=== PATIENT | female | born 1955 | race Caucasian/White ===

== ENCOUNTER → 2019-07-31 17:56 | Outpatient (CLI) | payer OTHER, SELFPAY | PROVIDERS: Referring Provider Ophthalmology; Visit Provider Ophthalmology | DX: Z22.321 Carrier or suspected carrier of Methicillin susceptible Staphylococcus aureus (principal) | CPT/HCPCS: 87070; 87205 ==

== ENCOUNTER → 2020-03-29 08:11 | Outpatient (CLI) | payer OTHER, SELFPAY ==
--- NOTE | 2020-03-29 08:15 | CT_ITS ---
STUDY: CT LEFT ANKLE WITHOUT CONTRAST REASON FOR EXAM: Female, 65 years old. ACHILLES TENDONITIS RADIATION DOSAGE (If Supplied By Facility): CTDIvol = ( 15.35 ) mGy, DLP = ( 349.92 ) mGycm TECHNIQUE: Thin section transaxial imaging of the ankle was obtained, with sagittal and coronal reconstructed images. Individualized dose optimization techniques were used for this CT. COMPARISON: None. FINDINGS: Old avulsion fracture of the medial malleolus. Normal tibiotalar articulation and talar dome. Normal talus, calcaneus, navicular and cuboid tarsal bones. Normal subtalar, talonavicular and calcaneocuboid articulations. Normal navicular-cuneiform, cuneiform tarsal bones and intercuneiform articulations. Normal tarsometatarsal articulations and visualized metatarsi. Soft tissue swelling in the region of the calcaneus with overlying skin thickening. There is evidence of a spur at the insertion of the Achilles tendon. The Achilles tendon is enlarged and of inhomogeneous density suggestive of inflammation. Plantar spur. CT/Extremity Lower without Contra IMPRESSION: Calcaneal spurs. Thickening and heterogeneous density of the Achilles tendon at its level of insertion with overlying soft tissue swelling and skin thickening. Electronically Signed: Damien Ramirez, at 12:09 EDT , Service support ,
== END ==
PROVIDERS: PCP Family Medicine; Referring Provider Podiatrist Foot & Ankle Surgery; Visit Provider Podiatrist Foot & Ankle Surgery
DX: M76.61 Achilles tendinitis, right leg (principal)
CPT/HCPCS: 73700

== ENCOUNTER → 2020-04-08 13:13 | Outpatient (CLI) | payer OTHER, SELFPAY ==
--- NOTE | 2020-04-08 13:24 | EKG12_ITS ---
Test Reason : PREOP Blood Pressure : / mmHG Vent. Rate : 074 BPM Atrial Rate : 074 BPM P-R Int : 118 ms QRS Dur : 068 ms QT Int : 392 ms P-R-T Axes : 059 012 014 degrees QTc Int : 435 ms Normal sinus rhythm Septal infarct , age undetermined Abnormal ECG Confirmed by TIGRE PITTS, RAJESH ([id number]), brands editor KRYSTIN AMARO ([id number]) on 04/09/2020 10:48:41 AM Referred By: Jose Burdick Confirmed By:RAJESH LANDEROS MD
[2020-04-08 13:31] LABS: Absolute Neutrophil Count 6.2 X10^3/uL (2.0-7.7); Basophil# 0.08 X10^3/uL; Basophil% 0.8 % (0-1); Eosinophil# 0.09 X10^3/uL; Eosinophils% 0.9 % (0-5); Hematocrit 44.6 % (37-47); Hemoglobin 14.8 g/dL (12.0-15.0); Lymphocyte % 28.3 % (19-41); Mean Corp Hgb Conc 33.2 g/dL (32-36); Mean Corpuscular Volume 87.5 fL (81-99); Mean Platelet Vol. 9.8 fl (6.2-12.0); Monocyte# 0.93 X10^3/uL; Monocyte% 9.1 % (0-10); NRBC Flagged by Analyzer 0 % (0-5); Neutrophil # 6.17 X10^3/uL (2.7-7.7); Neutrophil % 60.2 % (47-70); Platelet Count 322 K/mm3 (150-450); RBC Distribution Width CV 13.2 % (11.6-14.6); RBC Distribution Width SD 41.8 fl (35.1-43.9); White Blood Count 10.2 K/mm3 (4.4-11.0)
--- NOTE | 2020-04-08 13:35 | RAD_ITS ---
STUDY: X-RAY CHEST REASON FOR EXAM: Female, 65 years old. PREOP TECHNIQUE: PA and lateral views of the chest. COMPARISON: None. FINDINGS: The lungs are clear and expanded. Scattered calcified granulomas. There is no demonstrated pleural abnormality. Normal size heart. Normal mediastinum and taylor. Normal visualized pulmonary arteries. Normal visualized aortic arch and descending thoracic aorta. There are diffuse degenerative changes of the visualized thoracic spine. Metallic anchors are seen overlying both humeral heads most likely secondary to prior rotator cuff surgery. There is no demonstrated abnormality of the visualized soft tissue structures of the upper abdomen. RAD/Chest PA and Lateral IMPRESSION: No acute abnormality is seen. Electronically Signed: Damien Ramirez, at 15:48 EDT , Service support ,
[2020-04-08 13:43] LABS: International Normalized Ratio 1.1; Prothrombin Time (Protime)PT. 13.3 SECONDS (11.7-14.9)
[2020-04-08 13:44] LABS: Partial Thromboplast Time 25.4 Seconds (24.1-36.2)
[2020-04-08 13:47] LABS: Anion Gap 8 (5-15); BUN 13 mg/dL (7-18); Calcium,Total 9.4 mg/dL (8.5-10.1); Chloride 102 mmol/L (98-107); Creatinine, Serum 0.76 mg/dL (0.55-1.02); EST Glomerular Filtration Rate 81 mL/min (>60); Est Glom Filt Rate - Afr Amer 98 mL/min (>60); Glucose 82 mg/dL (74-106); Potassium 3.6 mmol/L (3.5-5.1); Sodium Level 138 mmol/L (136-145)
== END ==
PROVIDERS: PCP Family Medicine; Referring Provider Podiatrist Foot & Ankle Surgery; Visit Provider Podiatrist Foot & Ankle Surgery
DX: Z01.818 Encounter for other preprocedural examination (principal); Z01.811 Encounter for preprocedural respiratory examination; Z01.810 Encounter for preprocedural cardiovascular examination
CPT/HCPCS: 36415; 71046; 80048; 83036; 85025; 85610; 85730; 93005

== ENCOUNTER → 2020-05-01 09:00 | Outpatient (CLI) | payer OTHER, SELFPAY | PROVIDERS: PCP Family Medicine; Referring Provider Registered Nurse; Visit Provider Registered Nurse | DX: Z11.59 Encounter for screening for other viral diseases (principal) | CPT/HCPCS: 87635; C9803; U0003 ==

== ENCOUNTER → 2020-05-07 14:42 | Outpatient (CLI) | payer OTHER, SELFPAY ==
--- NOTE | 2020-05-07 14:42 | BON_PTH ---
PATIENT: JAZLYN VILLARREAL LOC: [facility] U#:[id number] AGE/SX: 70/F ROOM: RE05/07/[address]: Dr. Jose Burdick DPM : 1955 BED: DIS: SPEC #: [id number] RECD: 05/08/20 15:23 STATUS: JESSICA CORRINA #: [id number] ARLEEN: 05/07/20 14:[address]: Jose Burdick DEPT: SURGICAL PATHOLOGY RECD BY: Ronni Renteria ENTERED: 05/09/20 08:20 SP TYPE: Bone OTHR DR: Dr. Jack Clay, [facility] Tissues: Bone of foot, NOS Procedures: Decalcification bone/plaque Surgery Specimen Level III Comments: @ Specimen number changed from [id number] to [id number] @ on 05/10/20 at 0803 by HEENAOD. HEADER OPERATION: Right Achilles tendon repair, right Achilles tendon reattachment, right resection of calcaneal spur PRE-OP DIAGNOSIS: Shortened Achilles tendon, Achilles tendonitis right ankle, calcaneal spur right foot, pes planus right foot TISSUE SUBMITTED: Calcaneal bone spur MICROSCOPIC DIAGNOSIS Calcaneal bone spur, excision: Osseocartilaginous tissue with degenerative and reparative change. See comment. REY:avelino 05/13/20 COMMENT The findings are consistent with bone spur with degenerative change. MICROSCOPIC DESCRIPTION Slides are reviewed. GROSS DESCRIPTION Received is one container labeled with the patient's name and not further designated. The specimen consists of multiple irregular fragments of lance-white bone that in aggregate measure 4.5 x 4 x 1.2 cm. Assistant Financial Accountant portions are submitted in one cassette after decalcification. / AM:avelino 05/09/20 TC:5 CPT: 62165, 44845
== END ==
PROVIDERS: PCP Family Medicine; Visit Provider Podiatrist Foot & Ankle Surgery
DX: M76.61 Achilles tendinitis, right leg (principal); M77.31 Calcaneal spur, right foot
CPT/HCPCS: 88304; 88311

== ENCOUNTER 2020-11-28 09:00 | Outpatient (RCR) | payer OTHER, SELFPAY ==
--- NOTE | 2020-11-05 15:05 | HP.PTEVAL ---
Patient's Visit Information JAZLYN VILLARREAL is a 65 year old F referred to Physical Therapy by Dr. Jose Burdick DPM with a diagnosis of UNILATERAL OSTEOARTHRITIS PRIMARY LEFT. Date of Evaluation: 11/05/20 Physical Therapist: Ki Valadez, PT, Cert MDT, OCS - Visit Plan Frequency: 2x /Week Duration: 6 Weeks Plan: PATIENT HAS LEFT DJD PLAN FOR THR ,AND PT AT [facility] FOR ACHILLES TENDON SURGERY. PT INTERVENTIONS AQUATIC THERAPY FOR ROM/STRENGTH LEFT HIP ,ANDFLEXABLITY LLE - Subjective This 65 y/o female presents to physical therapy with left hip pain. Patient has had hip pain 4 -5months. Patient seen family DR costa [facility], Seen DR Barbosa DID X-RAYS showed DJD and will need THR . In the mean ,time May 07 achilles tendon surgery resection DR Trevor Burdick at [facility] . Patient has been getting therapy for achllies tondon. Aggraveting factors walking ,standing in/out of care,unable to squat or kneel. Patient ascend/desend stairs one step at time. Alleviating factors heat. Symptoms worse at time.Patient has difficulty sleeping. Denies parathesia/tingling. Patient pain affects sleeping. Patient left hip pain affects ADLS' and housework tasks. Patient symptoms affects QOL. SOCIAL: . VOACTION: retired - Pain Left Hip Pain Intensity (Out of 10): 9 Pain Intensity Range: 10 - Objective POSTURE: mild foward posture. GAIT: reciprocal pattern antalgic gait. NEURO: denies parathesia/tingling. AROM KNEE : 5-105 supine ,hip flexion 70 degrees,abduction 20 degrees,IR 0 degrees,ER 20 degrees. MMT: quads/hams 4-/5,hip flexion 3+/5,hip abduction 3+/5. STAIRS: one step at a time with rail - Special Tests L Hip Scour: Positive L Hip Trendelenberg - Glut Medius: Positive - Goals Goal 1:: I with Aquatic Therapy program Goal Time Frame: 4-6 Weeks Goal 2:: Patient to decrease hip pain by 40% or > to improve function and gait Goal Time Frame: 4-6 Weeks Goal 3:: Patient to increase AROM left hip by 5-10 degrees or> to impro ve function Goal Time Frame: 4-6 Weeks Goal 4:: Patient to increase strength hip 4-/5 and quads/hams 4/5 to improve function wth gait Goal Time Frame: 4-6 Weeks Goal 5:: Patient to improve LFES score by 5 points or> to improve function Goal Time Frame: 4-6 Weeks - Rehabilitation Potential Physical Therapy Diagnosis: Patient has left hip DJD with pain ,poor ROM ,strength hip impairs walking ,standing ADL'S and housework tasks thus benifit from skilled PT Rehabilitation Potential: Good - Anticipated Interventions Patient/Client Instruction: Educate patient on: Condition, Plan of Care For the Purpose of:: To decrease pain, To increase ROM, To improve muscle performance and motor function, To increase tolerance to activity/condition/position, To improve performance and independence with ADL's, To improve ability of physical actions for home/community/work/leisure, To improve gait and locomotor functions, To improve health of tissue, To decrease soft tissue restriction, To increase flexibility/ROM Therapeutic Exercise to Include: Strength training, Balance training, Flexibilty training, In an aquatic setting, Passive ROM, Active ROM Comment: HIP/KNEE For the Purpose of:: To decrease pain, To increase ROM, To improve muscle performance and motor function, To improve ability to perform ADL's, To increase tolerance to activity/condition/position, To improve performance and independence with ADL's, To improve ability of physical actions for home/community/work/leisure, To improve health of tissue, To decrease soft tissue restriction, To increase flexibility/ROM Thank you for the opportunity to evaluate your patient. For Medicare and Medicare HMO plans, please review the plan of care and approve it. It will need to be FAXED BACK to us at [phone] for Medicare purposes. For Medicare only, by signing this I certify the plan of care. Please let me know if there are questions or concerns regarding this plan of care. Physician Signature: Date:
--- NOTE | 2020-11-05 15:15 | HP.PTEVAL_ITS ---
Patient's Visit Information JAZLYN VILLARREAL is a 65 year old F referred to Physical Therapy by Dr. Jose Burdick DPM with a diagnosis of PRIMARY UNILATERAL OSTEOARTHRITIS HIP. Date of Evaluation: 11/05/20 Physical Therapist: Ki Valadez, PT, Cert MDT, OCS - Visit Plan Frequency: 2x /Week Duration: 6 Weeks Plan: PATIENT HAS LEFT DJD PLAN FOR THR ,AND PT AT [facility] FOR ACHILLES TENDON SURGERY. PT INTERVENTIONS AQUATIC THERAPY FOR ROM/STRENGTH LEFT HIP ,ANDFLEXABLITY LLE - Subjective This 65 y/o female presents to physical therapy with left hip pain. Patient has had hip pain 4 -5months. Patient seen family DR costa [facility], Seen DR Barbosa DID X-RAYS showed DJD and will need THR . In the mean ,time May 07 achilles tendon surgery resection DR Trevor Burdick at [facility] . Patient has been getting therapy for achllies tondon. Aggraveting factors walking ,standing in/out of care,unable to squat or kneel. Patient ascend/desend stairs one step at time. Alleviating factors heat. Symptoms worse at time.Patient has difficulty sleeping. Denies parathesia/tingling. Patient pain affects sleeping. Patient left hip pain affects ADLS' and housework tasks. Patient symptoms affects QOL. SOCIAL: . VOACTION: retired - Pain Left Hip Pain Intensity (Out of 10): 9 Pain Intensity Range: 10 - Objective POSTURE: mild foward posture. GAIT: reciprocal pattern antalgic gait. NEURO: denies parathesia/tingling. AROM KNEE : 5-105 supine ,hip flexion 70 degrees,abduction 20 degrees,IR 0 degrees,ER 20 degrees. MMT: quads/hams 4- /5,hip flexion 3+/5,hip abduction 3+/5. STAIRS: one step at a time with rail - Special Tests L Hip Scour: Positive L Hip Trendelenberg - Glut Medius: Positive - Goals Goal 1:: I with Aquatic Therapy program Goal Time Frame: 4-6 Weeks Goal 2:: Patient to decrease hip pain by 40% or > to improve function and gait Goal Time Frame: 4-6 Weeks Goal 3:: Patient to increase AROM left hip by 5-10 degrees or> to impro ve function Goal Time Frame: 4-6 Weeks Goal 4:: Patient to increase strength hip 4-/5 and quads/hams 4/5 to improve function wth gait Goal Time Frame: 4-6 Weeks Goal 5:: Patient to improve LFES score by 5 points or> to improve function Goal Time Frame: 4-6 Weeks - Rehabilitation Potential Physical Therapy Diagnosis: Patient has left hip DJD with pain ,poor ROM ,strength hip impairs walking ,standing ADL'S and housework tasks thus benifit from skilled PT Rehabilitation Potential: Good - Anticipated Interventions Patient/Client Instruction: Educate patient on: Condition, Plan of Care For the Purpose of:: To decrease pain, To increase ROM, To improve muscle performance and motor function, To increase tolerance to activity/condition/position, To improve performance and independence with ADL's, To improve ability of physical actions for home/community/work/leisure, To improve gait and locomotor functions, To improve health of tissue, To decrease soft tissue restriction, To increase flexibility/ROM Therapeutic Exercise to Include: Strength training, Balance training, Flexibilty training, In an aquatic setting, Passive ROM, Active ROM Comment: HIP/KNEE For the Purpose of:: To decrease pain, To increase ROM, To improve muscle performance and motor function, To improve ability to perform ADL's, To increase tolerance to activity/condition/position, To improve performance and independence with ADL's, To improve ability of physical actions for home/community/work/leisure, To improve health of tissue, To decrease soft tissue restriction, To increase flexibility/ROM Thank you for the opportunity to evaluate your patient. For Medicare and Medicare HMO plans, please review the plan of care and approve it. It will need to be FAXED BACK to us at [phone] for Medicare purposes. For Medicare only, by signing this I certify the plan of care. Please let me know if there are questions or concerns regarding this plan of care. Physician Signature: Date:
--- NOTE | 2020-11-06 09:22 | HP.PTEVAL_ITS ---
Patient's Visit Information JAZLYN VILLARREAL is a 65 year old F referred to Physical Therapy by Dr. Santosh Barbosa MD with a diagnosis of PRIMARY UNILATERAL OSTEOARTHRITIS LEFT HIP. Date of Evaluation: 11/05/20 Physical Therapist: Ki Valadez, PT, Cert MDT, OCS - Visit Plan Frequency: 2x /Week Duration: 6 Weeks Plan: PATIENT HAS LEFT DJD PLAN FOR THR ,AND PT AT [facility] FOR ACHILLES TENDON SURGERY. PT INTERVENTIONS AQUATIC THERAPY FOR ROM/STRENGTH LEFT HIP ,ANDFLEXABLITY LLE - Subjective This 65 y/o female presents to physical therapy with left hip pain. Patient has had hip pain 4 -5months. Patient seen family DR costa [facility], Seen DR Barbosa DID X-RAYS showed DJD and will need THR . In the mean ,time May 07 achilles tendon surgery resection DR Trevor Burdick at [facility] . Patient has been getting therapy for achllies tondon. Aggraveting factors walking ,standing in/out of care,unable to squat or kneel. Patient ascend/desend stairs one step at time. Alleviating factors heat. Symptoms worse at time.Patient has difficulty sleeping. Denies parathesia/tingling. Patient pain affects sleeping. Patient left hip pain affects ADLS' and housework tasks. Patient symptoms affects QOL. SOCIAL: . VOACTION: retired - Pain Left Hip Pain Intensity (Out of 10): 9 Pain Intensity Range: 10 - Objective POSTURE: mild foward posture. GAIT: reciprocal pattern antalgic gait. NEURO: denies parathesia/tingling. AROM KNEE : 5-105 supine ,hip flexion 70 degrees,abduction 20 degrees,IR 0 degrees,ER 20 degrees. MMT: quads/hams 4- /5,hip flexion 3+/5,hip abduction 3+/5. STAIRS: one step at a time with rail - Special Tests L Hip Scour: Positive L Hip Trendelenberg - Glut Medius: Positive - Goals Goal 1:: I with Aquatic Therapy program Goal Time Frame: 4-6 Weeks Goal 2:: Patient to decrease hip pain by 40% or > to improve function and gait Goal Time Frame: 4-6 Weeks Goal 3:: Patient to increase AROM left hip by 5-10 degrees or> to impro ve function Goal Time Frame: 4-6 Weeks Goal 4:: Patient to increase strength hip 4-/5 and quads/hams 4/5 to improve function wth gait Goal Time Frame: 4-6 Weeks Goal 5:: Patient to improve LFES score by 5 points or> to improve function Goal Time Frame: 4-6 Weeks - Rehabilitation Potential Physical Therapy Diagnosis: Patient has left hip DJD with pain ,poor ROM ,strength hip impairs walking ,standing ADL'S and housework tasks thus benifit from skilled PT Rehabilitation Potential: Good - Anticipated Interventions Patient/Client Instruction: Educate patient on: Condition, Plan of Care For the Purpose of:: To decrease pain, To increase ROM, To improve muscle performance and motor function, To increase tolerance to activity/condition/position, To improve performance and independence with ADL's, To improve ability of physical actions for home/community/work/leisure, To improve gait and locomotor functions, To improve health of tissue, To decrease soft tissue restriction, To increase flexibility/ROM Therapeutic Exercise to Include: Strength training, Balance training, Flexibilty training, In an aquatic setting, Passive ROM, Active ROM Comment: HIP/KNEE For the Purpose of:: To decrease pain, To increase ROM, To improve muscle performance and motor function, To improve ability to perform ADL's, To increase tolerance to activity/condition/position, To improve performance and independence with ADL's, To improve ability of physical actions for home/community/work/leisure, To improve health of tissue, To decrease soft tissue restriction, To increase flexibility/ROM Thank you for the opportunity to evaluate your patient. For Medicare and Medicare HMO plans, please review the plan of care and approve it. It will need to be FAXED BACK to us at [phone] for Medicare purposes. For Medicare only, by signing this I certify the plan of care. Please let me know if there are questions or concerns regarding this plan of care. Physician Signature: Date:
--- NOTE | 2020-11-28 09:18 | HP.PTDCSUM ---
It has been my pleasure to treat JAZLYN VILLARREAL referred by Dr. Santosh Barbosa MD, with the diagnosis of PRIMARY UNILATERAL OSTEOARTHRITIS LEFT HIP for a total of 9 visit(s). Discharge Date: 11/28/20 Please see the following information for a summary of their discharge status. Subjective: Plan to left THR on february 19 . Also,plan to have hysterectomy tommorrow thus has to be done with PT. Left Hip Pain Intensity (Out of 10): 5 LLE Pain Intensity (Out of 10): 0 RLE Pain Intensity (Out of 10): 0 % Improvement: 50 Objective/Function: D/t elevated pains today, beginning in NWBing for hopeful pain relief. Difficulty with maintaining neutral pelvis against upward pull of buoyancy demo'ing ant. pelvic tilt. Able to correct with VCs, however, difficulty maintaining. REports of reduced pain to 5/10 after DLP tasks. Demo'ing improved tolerance to greater WBing through LLE for x5 reps of step ups before becoming more painful. Able to tolerate an additional x25 reps at ~25-35% WBing. Goal 1:: I with Aquatic Therapy program Goal Progress: Goal Met Goal 2:: Patient to decrease hip pain by 40% or > to improve function and gait Goal Progress: Goal Met Goal 3:: Patient to increase AROM left hip by 5-10 degrees or> to impro ve function Goal Progress: Progressing Goal 4:: Patient to increase strength hip 4-/5 and quads/hams 4/5 to improve function wth gait Goal Progress: Progressing Goal 5:: Patient to improve LFES score by 5 points or> to improve function Goal Progress: Goal Met Plan: *f/u with supervising PT tomorrow. Has Filled out % improved and LEFS on Saturday 11/25. Having hysterectomy Wednesday. Scheduled for L RAMON 02/19/21. PATIENT HAS LEFT DJD PLAN FOR THR ,AND PT AT [facility] FOR ACHILLES TENDON SURGERY. PT INTERVENTIONS AQUATIC THERAPY FOR ROM/STRENGTH LEFT HIP ,ANDFLEXABLITY LLE Discharge Comments: PLAN FOR THR JANUARY If there are questions or concerns regarding this patient's physical therapy, please feel free to call me at [phone]. Thank you for the referral of this patient. Sincerely, Ki aVladez, PT, Cert MDT, OCS
== END 2020-11-28 19:00 | disposition home or self-care (01) ==
LOC: PT 09:00
PROVIDERS: PCP Family Medicine; Referring Provider Specialist; Visit Provider Specialist
DX: M16.12 Unilateral primary osteoarthritis, left hip (principal); M67.01 Short Achilles tendon (acquired), right ankle
CPT/HCPCS: 97113; 97162; 97530

== ENCOUNTER 2021-02-19 07:07 | Observation (INO) | payer OTHER, SELFPAY ==
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
[2021-02-05 09:09] LABS: Absolute Lymphocyte Count 1.53 X10^3/uL (0.83-4.51); Absolute Neutrophil Count 4.7 X10^3/uL (2.0-7.7); Basophil# 0.06 X10^3/uL; Basophil% 0.8 % (0-1); Eosinophil# 0.09 X10^3/uL; Eosinophils% 1.3 % (0-5); Hematocrit 43.7 % (37-47); Hemoglobin 14.1 g/dL (12.0-15.0); Lymphocyte # 1.53 X10^3/ul (0.83-4.51); Lymphocyte % 21.7 % (19-41); Mean Corp Hgb Conc 32.3 g/dL (32-36); Mean Corpuscular Hgb 28.2 pg (27.0-32.0); Mean Corpuscular Volume 87.4 fL (81-99); Mean Platelet Vol. 9.8 fl (6.2-12.0); Monocyte# 0.62 X10^3/uL; Monocyte% 8.8 % (0-10); NRBC Flagged by Analyzer 0 % (0-5); Neutrophil % 66.6 % (47-70); Platelet Count 323 K/mm3 (150-450); RBC Distribution Width CV 13.2 % (11.6-14.6); RBC Distribution Width SD 41.4 fl (35.1-43.9); White Blood Count 7.1 K/mm3 (4.4-11.0)
[2021-02-05 09:46] LABS: Anion Gap 8 (5-15); BUN 13 mg/dL (7-18); Calcium,Total 9.6 mg/dL (8.5-10.1); Chloride 105 mmol/L (98-107); Creatinine, Serum 0.81 mg/dL (0.55-1.02); EST Glomerular Filtration Rate 75 mL/min (>60); Est Glom Filt Rate - Afr Amer 91 mL/min (>60); Glucose 116 mg/dL (74-106); Potassium 3.4 mmol/L (3.5-5.1); Sodium Level 142 mmol/L (136-145)
--- NOTE | 2021-02-05 09:48 | EKG12_ITS ---
Test Reason : PREOP Blood Pressure : / mmHG Vent. Rate : 068 BPM Atrial Rate : 068 BPM P-R Int : 126 ms QRS Dur : 068 ms QT Int : 388 ms P-R-T Axes : 044 003 015 degrees QTc Int : 412 ms Sinus rhythm with Premature atrial complexes Low voltage QRS Septal infarct (cited on or before 08-APR-2020) Abnormal ECG Confirmed by TIGRE PITTS, RAJESH ([id number]), purchase request editor ADRIANNA TOSCANO ([id number]) on 02/07/2021 8:07:45 AM Referred By: Santosh Barbosa Confirmed By:RAJESH LANDEROS MD
[2021-02-05 09:55] LABS: Magnesium 1.9 mg/dL (1.6-2.6)
[2021-02-19] VITALS (12 sets, daily range): BP systolic 85–169; BP diastolic 55–101; PULSE 53–77; RESP 16–18; TEMP 35.6–37.1; O2SAT 6–100; BMI 39.2; BMI 41.6
--- NOTE | 2021-02-19 07:08 | RAD_ITS ---
STUDY: X-RAY - PELVIS AND LEFT HIP REASON FOR EXAM: Postop left hip arthroplasty. TECHNIQUE: 2 views of the pelvis and hip. COMPARISON: None. FINDINGS: There is mild postoperative gas in the soft tissues. Normal bilateral superior and inferior pubic rami. Normal pubic symphysis. Normal bilateral ischial tuberosities. There is a left hip arthroplasty without evidence of complication. RAD/Hip Min 2 Views (Portable) IMPRESSION: Uncomplicated left hip arthroplasty. Electronically Signed: Pete Carl MD at 12:41 EDT Tel , Service support ,
--- NOTE | 2021-02-19 07:10 | OP.PCM_ITS ---
Report of Operation Date of Procedure: 02/19/21 Pre-Operative Diagnosis: Left hip primary osteoarthritis Post-Operative Diagnosis: Left hip primary osteoarthritis Surgery/Procedure Performed:: Left minimally invasive direct anterior hip replacement Description of Surgical Findings:: Stable hip with equal leg lengths Surgeon: Santosh Barbosa base engineer: Lazarus Patel Type of Anesthesia: Spinal Special Medications: 2 g Ancef, 1 g TXA at incision, 1 g TXA closure, 10 mg Decadron, joint cocktail (5 mg Duramorph, 30 mL of 0.5% Ropivicaine, 1000 units of epinephrine, 30 mg of Toradol) Specimen's removed: Bony cuts Estimated Blood Loss (mL): 250 Fluids Replaced: 1200 mL crystalloid Description of Procedure: Components used: 1. Accolade 2 Ej femoral stem size 2 127? 2. Ej trident 2 acetabular shell size 52 mm 3. Ej X3 polyethylene E 4. Ej Biolox delta 36 mm, 0 mm femoral head Brief history operative indications: 66yo female who failed conservative measures for their hip osteoarthritis. X- rays were consistent with osteoarthritis including joint space narrowing, osteophyte formation and subchondral cysts. Total hip replacement was discussed with the patient with risks and benefits including but not limited to blood loss, DVTs, PEs, neurovascular damage, dislocation, general risks of anesthesia including loss of life. Patient demonstrated an understanding medical clearance is obtained the patient was consented for surgery. Procedure: On the date of procedure the patient's L hip was marked in the preoperative area. Patient was then taken back to the operating room where anesthesia assumed control of the C-spine and airway and administered anesthetic. Patient was transferred to the operating table and placed in the supine position. The hips were placed at the break of the bed and a sacral bump was placed. L The lower extremity was then prepped out in a sterile fashion using chlorhexidine while the surgeon scrubbed. The PA was vital in the positioning of the patient. Upon reentering the room the left lower extremity was draped in the standard orthopedic fashion and the incision was marked. A timeout was called and everyone agreed upon the side, the site, the procedure be performed, antibody given, and patient's identity. At this time incision was made through skin, subcutaneous tissue, and fat down to fascia. The fascia was then incised and the TFL was retracted laterally. A retractor was placed on the lateral border of the femoral neck. Attention was directed to the inferior portion of the approach and all crossing vessels were identified and appropriately coagulated. A retractor was then placed on the medial portion of the femoral neck. The anterior capsule was then cleared of all soft tissue and then H shaped capsulotomy was made. The retractors were then placed inside the capsule. The femoral neck was identified and a cleanup cut was made. At this time a power corkscrew was used to remove the femoral head. Attention was then turned toward the acetabulum where the soft tissues were appropriately retracted and the acetabulum was sequentially reamed to 52 mm. A 52 mm cup was then selected and impacted into place. Acetabular liner was impacted into place and locking mechanism was verified. The position of the acetabular cup was then verified under live fluoroscopy. Attention was then turned to the femur. Soft tissue releases on the medial and lateral femoral neck were appropriately done, the leg was externally rotated and lateralized. A Tim retractor was placed medially and proximally to the greater trochanter this allowed appropriate visualization and exposure of the femoral canal. Rongeour was then used to remove excess lateral bone. A canal finder and entry broach were used to open the proximal canal. Once we verified we were down the femoral canal we subsequently broached up to a size 2 femur. The appropriate neck was placed in the previously selected head was trialed with a 0 mm neck. Traction was pulled and the hip was reduced with internal rotation. Once it was appropriately reduced and stability was checked. There was minimal shuck, equal leg lengths and appropriate stability with hyperextension and external rotation as well as with 90? flexion and internal rotation. Fluoroscopy was then also used to verify the position of the components and leg lengths using the contralateral side for comparison. The trial components were then dislocated the proximal femur was again exposed and the components were removed from the wound. The final components were verified and opened. The wound was copiously irrigated out with normal saline. The acetabulum was checked for any residual debris. The final components were placed and impacted. Traction and internal rotation were again used to reduce the hip. After adequate reduction the hip remained stable with appropriate leg lengths. The final components were once again checked with live fluoroscopy and were found to be satisfactory. The wound was then copiously irrigated with normal saline once more, and hemostasis was obtained. Closure was then done using #1 Vicryl runner to close the fascia. A 2-0 vicryl interuppted sutures were used to close the subcutaneous skin. A 3-0 Monocryl and Steri-Strips were used for final skin closure. A Silverlon dressing was placed. Patient was awakened by anesthesia and transferred to the [facility]. Patient was then transferred to the PACU for recovery. Postoperative plan: Patient will get 24 hours postop antibiotics. Patient will get in-house physical therapy and will be weight-bear as tolerated. Patient will follow up in office in 2 weeks for a wound check and x-rays. Aspirin 81 mg twice daily. Complications No intraoperative complications Admit VTE Documentation VTE Present on Admission: No VTE Mechan Device Prophylaxis: SCD's and Thigh High NORA Hose VTE Pharm Prophylaxis ordered?: Yes
[2021-02-19] MEDS: Acetaminophen 500 MG Tablet 1000 MG PO ×3 (07:14→22:37)
[2021-02-19] MEDS: Lactated Ringers 1,000 ML 999 ML IV ×2 (07:14→09:30)
[2021-02-19] MEDS: Gabapentin 600 MG Tablet PO (07:14)
[2021-02-19] MEDS: Scopolamine 1mg/72hr Patch 1 PATCH TD (07:15)
[2021-02-19] MEDS: Lactated Ringers 1,000 ML 75 ML IV (07:16)
--- NOTE | 2021-02-19 09:00 | FEM._PTH ---
PATIENT: JAZLYN VILLARREAL LOC: MS3 U#:[id number] AGE/SX: 66/F ROOM: GA310 RE02/19/[address]: Dr. Santosh Barbosa MD : 1955 BED: 1 DIS: 02/20/2021 SPEC #: [id number] RECD: 02/19/21 11:19 STATUS: JESSICA RERosio #: [id number] ARLEEN: 02/19/21 09:[address]: Santosh Barbosa DEPT: SURGICAL PATHOLOGY RECD BY: Judi Sexton ENTERED: 02/19/21 12:26 SP TYPE: FEM HEAD OTHR DR: DO Edmar Rosas PA-C Tissues: Hip, NOS Procedures: Decalcification bone/plaque Surgery Specimen Level IV HEADER OPERATION: ERAS, total hip anterior approach PRE-OP DIAGNOSIS: Severe left hip osteoarthritis TISSUE SUBMITTED: Tissue and bone left hip MICROSCOPIC DIAGNOSIS Bone and tissue of left hip, total hip resection: Severe degenerative joint disease. AM:avelino 02/24/2021 MICROSCOPIC DESCRIPTION Slides are reviewed. GROSS DESCRIPTION Received is one container labeled with the patient's name and designated tissue and bone left hip. The specimen consists of a femoral head. The femoral head measures 3.5 x 4 x 3.5 cm. Also present in the container is a detached piece of bone consistent with portion of neck measuring 4 x 4 x 1 cm. The articular surface displays prominent osteophyte formation, eburnation and bone erosion. Also present in the specimen container are multiple irregular fragments of bone reamings and pink-yellow soft tissue measuring in aggregate 8 x 9 x 3 cm. The soft tissue predominantly consists of bone reamings. Material Requirements Planning Manager sections are submitted in two cassettes after decalcification as follows: 1 - soft tissue and bone reamings, 2 ? femoral head. / SJ:avelino 02/19/21 TC:5 CPT: 79920, 46680
[2021-02-19] MEDS: Cefazolin 2 GM in 0.9% Normal Saline 100 ML IV (09:02)
[2021-02-19] MEDS: dexAMETHasone 10 MG/ML Vial IV (09:23)
--- NOTE | 2021-02-19 10:02 | RAD_ITS ---
STUDY: X-RAY - PELVIS AND LEFT HIP REASON FOR EXAM: Intraoperative fluoroscopy for left hip arthroplasty. TECHNIQUE: 3 intraoperative images of the pelvis and hip. COMPARISON: None. FINDINGS: There is a left hip arthroplasty without evidence of complication. 16.6 seconds of fluoroscopy time was used. Electronically Signed: Pete Carl MD at 14:46 EDT Tel , Service support , RAD/Hip 1 view with Pelvis
[2021-02-19 10:20] LABS: Bedside Glucose 89 mg/dL (70-110)
[2021-02-19] MEDS: Lactated Ringers 1,000 ML 125 ML IV (10:30)
--- NOTE | 2021-02-19 13:33 | NURSING ---
spoke with Yenifer CASTILLO RE: MAR
--- NOTE | 2021-02-19 14:26 | PCM.PN.HOSP ---
Documented by User: Shiloh Roman NP, CAMP[employer] CLEANING ATTENDANT-C 02/19/21 14:29 Subjective Subjective Patient seen and examined. Underwent left hip replacement. Resting comfortably in bed. Denies current symptoms or complaints. Objective Data Objective Data Vital Signs: Vital Signs Temp Pulse Resp BP Pulse Ox 98.0 F 65 18 153/82 H 6 02/19/21 12:45 02/19/21 12:45 02/19/21 12:45 02/19/21 12:45 02/19/21 12:45 Oxygen Flow Rate (L/min) 6 Oxygen Delivery Method Simple Mask Weight: 242 lb 8.136 oz Body Mass Index (BMI) 41.6 Intake & Output: Intake and Output for Last 24 Hours 02/17/21 02/18/21 02/19/21 23:59 23:59 23:59 Intake Total 3326 / 3326 Balance 3326 / 3326 Lab / Micro Data Result Diagrams: 02/05/21 08:42 02/05/21 08:42 Labs: Laboratory Results - last 24 hr 02/19/21 07:01 POC Glucose 89 Micro: Microbiology 02/18/21 08:45 Interface Orders SARS-CoV-2 Antigen (Rapid) - Final 02/05/21 08:42 Swab (Method) Nasal Screen MRSA/MSSA - Final Radiography Diagnostic Testing: Radiology Impression Hip X-Ray 02/19/21 07:08 IMPRESSION: Uncomplicated left hip arthroplasty. Electronically Signed: Pete Carl MD at 12:41 EDT Tel , Service support , Physical Exam Const alert, oriented x3 and no apparent distress Orientation / Consciousness: awake, oriented to person, oriented to place and oriented to time HEENT normocephalic and moist oral mucous membranes Eyes PERRL, EOMs intact bilaterally and conjunctivae normal Neck no lymphadenopathy Resp normal respiratory effort and clear to auscultation bilaterally Cardio regular rate, regular rhythm and no murmurs Peripheral Pulses: pulses 2+ throughout GI normal to inspection, nondistended, normoactive bowel sounds, non-tender and non-distended Extremity normal to inspection Skin no rashes or lesions noted Skin Narrative: Postop dressing intact. Lesions: no lesions Rashes: no rashes Trauma: no lacerations or abrasions Neuro CN's II-XII intact bilaterally, no focal motor deficits, no sensory deficits noted and deep tendon reflexes 2+ bilaterally Psych mental status grossly normal and affect normal Assessment & Plan Assessment/Plan (1) Hypertension: PLAN: 1. Left hip osteoarthritis status post left hip replacement- management per ortho. PT/OT. PRN pain regimen. 2. Hypertension-stable, continue losartan/HCTZ. 3. Depression-on escitalopram. 4. GERD-continue PPI. 5. SOFI-continue PAP regimen. 6. History of breast cancer DVT prophylaxis- per ortho This patient was seen by YARELY Chavira under the supervision of Dr. Angel. Documented by User: Dr. Davide Angel MD 02/19/21 16:06 Objective Data Lab / Micro Data Result Diagrams: 02/05/21 08:42 02/05/21 08:42 Charges/Coding Addendum Addendum: Dr. Angel: I personally reviewed the chart and examined the patient, and agree with the above findings. 66-year-old female presents for an elective total hip secondary to arthritis on the left. Her primary medical diagnosis is hypertension, GERD, anxiety and depression. All of her medications can be continued we will continue to monitor. Would recommend monitoring her renal function secondary to being postop and having an ARB and diuretic on board. Visit Charges Inpatient E&M: 43511 Subs Hosp L3
[2021-02-19] MEDS: Morphine 2 MG/ML Syringe IV (15:05)
[2021-02-19] MEDS: Ketorolac 15 MG/ML Vial IV (15:05)
[2021-02-19] MEDS: Aspirin 81 MG TAB.CHEW PO (15:06)
--- NOTE | 2021-02-19 15:10 | CASEMGMT ---
RN CM F[employer]ER[employer] DOWEL DRAWING OPERATOR CM to room to meet with patient for initial transition planning/care coordination assessment. JONATHAN SHELTON introduced self and role at [facility]. Pt voices understanding and consents to assessment at this time. Pt resting in bed in no distress at this time. Pt is A/O at this time and answers all questions appropriately. Care providers, pharmacy, and demographics verified/updated at this time. PCP: Dr Jack Clay in [place] Specialists: Dr Barbosa-ortho, Dr Trevor Burdick- podiatry, Dr Josue Ford--oncology in [place] Preferred Pharmacy: [facility] Retail Insurance: CINDY [employer]lain [facility] Prescription Benefit: Yes Living Will/HPOA: Has both LW and Healthcare POA, who is her , Kendrick. Pt aware copies are not on file @ [facility]. She states she will have her bring them in if he is able to find them. LNOK: , Kendrick Living Arrangements: Lives w/her in mobile home w/4 steps to enter. Was independent w/ADL's and IADL's prior to surgery. Pt managed most home tasks. able to assist pt @ d/c. Transportation: Pt states drives self and states no transportation concerns at this time. also drives DME: States has the following DME: shower chair, cane, walker Pt states no need for further DME at this time. HHC/SNF: No history of either. Denies need for HHC. Pt has appt scheduled for OP PT @ [facility] on 02/24 @ 0900 Pt wishes to return home and states has no concerns with going home at time of discharge. CM to follow for any discharge planning/needs. Pt voices no concerns/needs at this time. Advised pt to ask for CM if any questions/concerns/needs arise. Voices understanding. PLAN: Home w/spousal support, discharge plans in place, and OP therapy @ [facility]. Thien JOSE RN, CM
[2021-02-19] MEDS: oxyCODONE 5 MG Tablet PO ×2 (16:13→20:40)
[2021-02-19] MEDS: Cefazolin 1 GM/50 ML BAG IV (16:13)
[2021-02-19] MEDS: hydroCHLOROthiazide 12.5mg 12.5 MG PO (16:15)
[2021-02-19] MEDS: Losartan Potassium 25 MG Tablet PO (18:45)
[2021-02-19] MEDS: Senna/Docusate Sodium 1 Tablet 2 TABLET PO (22:37)
[2021-02-19] MEDS: Montelukast 10 MG Tablet PO (22:37)
[2021-02-19] MEDS: Escitalopram Oxalate 10 MG Tablet PO (22:37)
[2021-02-20 00:30] VITALS: BMI 41.6
[2021-02-20] MEDS: oxyCODONE 5 MG Tablet PO ×2 (01:07→08:40)
[2021-02-20] MEDS: Cefazolin 1 GM/50 ML BAG IV (01:08)
[2021-02-20 04:30] VITALS: BP 148/74; PULSE 65; RESP 18; TEMP 36.4; O2SAT 100; BMI 41.6
[2021-02-20] MEDS: Acetaminophen 500 MG Tablet 1000 MG PO ×2 (05:31→13:33)
[2021-02-20 06:04] LABS: Hematocrit 36.6 % (37-47); Hemoglobin 11.7 g/dL (12.0-15.0); Mean Corpuscular Hgb 27.9 pg (27.0-32.0); Mean Corpuscular Volume 87.4 fL (81-99); Mean Platelet Vol. 9.9 fl (6.2-12.0); Platelet Count 260 K/mm3 (150-450); RBC Distribution Width CV 13.1 % (11.6-14.6); RBC Distribution Width SD 41.3 fl (35.1-43.9); Red Blood Count 4.19 M/mm3 (4.2-5.4); White Blood Count 14.3 K/mm3 (4.4-11.0)
[2021-02-20 06:29] LABS: Anion Gap 5 (5-15); BUN 11 mg/dL (7-18); BUN/Creat Ratio 14.4 RATIO (10-20); Calcium,Total 8.4 mg/dL (8.5-10.1); Chloride 104 mmol/L (98-107); Creatinine, Serum 0.76 mg/dL (0.55-1.02); EST Glomerular Filtration Rate 81 mL/min (>60); Est Glom Filt Rate - Afr Amer 98 mL/min (>60); Estimated Creatinine Clearance 64.58 ml/min; Glucose 134 mg/dL (74-106); Potassium 3.8 mmol/L (3.5-5.1); Sodium Level 138 mmol/L (136-145)
[2021-02-20 08:00] VITALS: PULSE 82
[2021-02-20] MEDS: Aspirin 81 MG TAB.CHEW PO (08:37)
[2021-02-20] MEDS: Ensure Surgery 237 ML LIQUID PO (08:37)
[2021-02-20] MEDS: Losartan Potassium 25 MG Tablet PO (08:38)
[2021-02-20] MEDS: hydroCHLOROthiazide 12.5mg 12.5 MG PO (08:38)
[2021-02-20] MEDS: Famotidine 20 MG Tablet PO (08:38)
[2021-02-20] MEDS: Calcium (Elemental) 500 MG Tablet 1000 MG PO (08:38)
[2021-02-20] MEDS: Senna/Docusate Sodium 1 Tablet 2 TABLET PO (08:39)
[2021-02-20] MEDS: Cholecalciferol (VIT D3) 25 MCG TABLET (1,000 UNITS) 125 MCG PO (08:39)
[2021-02-20] MEDS: Pantoprazole Sodium 40 MG Tablet PO (08:39)
--- NOTE | 2021-02-20 09:01 | PN.ORTHO_ITS ---
Subjective Subjective The patient was sitting in bedside chair upon examination. Patient denies any chest pain, shortness of breath, dizziness, lightheadedness, nausea or vomiting, or calf pain. Pain is controlled on medications. No adverse overnight events. Overall patient is doing well.. Objective Data Objective Data Vital Signs: Vital Signs Temp Pulse Resp BP Pulse Ox 97.6 F L 65 18 148/74 H 100 02/20/21 04:30 02/20/21 04:30 02/20/21 04:30 02/20/21 04:30 02/20/21 04:30 Oxygen Flow Rate (L/min) 6 Oxygen Delivery Method Room Air Weight: 110 kg Body Mass Index (BMI) 41.6 Intake & Output: Intake and Output for Last 24 Hours 02/18/21 02/19/21 02/20/21 23:59 23:59 23:59 Intake Total 4976 / 4976 450 / 450 Balance 4976 / 4976 450 / 450 Lab / Micro Data Result Diagrams: 02/20/21 05:54 02/20/21 05:54 Labs: Laboratory Results - last 24 hr 02/19/21 02/20/21 02/20/21 07:01 05:54 05:54 WBC 14.3 H RBC 4.19 L Hgb 11.7 L Hct 36.6 L MCV 87.4 MCH 27.9 MCHC 32.0 RDW Std Deviation 41.3 RDW Coeff of Amauri 13.1 Plt Count 260 MPV 9.9 Sodium 138 Potassium 3.8 Chloride 104 Carbon Dioxide 29.0 Anion Gap 5 BUN 11 Creatinine 0.76 Estim Creat Clear Calc 64.58 Est GFR (MDRD) Af Amer 98 Est GFR (MDRD) Non-Af 81 BUN/Creatinine Ratio 14.4 Glucose 134 H Calcium 8.4 L POC Glucose 89 Micro: Microbiology 02/18/21 08:45 Interface Orders SARS-CoV-2 Antigen (Rapid) - Final 02/05/21 08:42 Swab (Method) Nasal Screen MRSA/MSSA - Final Radiography Diagnostic Testing: Radiology Impression Hip X-Ray 02/19/21 07:08 IMPRESSION: Uncomplicated left hip arthroplasty. Electronically Signed: Pete Carl MD at 12:41 EDT Tel , Service support , Hip/Pelvis X-Ray 02/19/21 10:02 Physical Exam Narrative Vital signs stable and afebrile. Patient is able to plantarflex and dorsiflex actively. Sensation is intact to light touch to saphenous, sural, superficial and deep peroneal, and tibial distribution. Dressing is clean dry and intact. Negative Homans bilaterally, negative signs and symptoms of DVT. Const alert, oriented x3 and no apparent distress Assessment & Plan Assessment/Plan (1) History of total left hip arthroplasty: PLAN: 1. S/P left direct anterior total hip arthroplasty POD #1 2. Continue Pain Medications: Tylenol, meloxicam, oxycodone 3. DVT Prophylaxis: Take 81 mg aspirin twice daily for 4 weeks postoperatively for DVT prophylaxis 4. PT/OT: Weightbearing as tolerated 5. H & H: 11.7/36.6, asymptomatic. Postoperative anemia secondary to acute blood loss from surgery without any intra operative complications. 6. Reactive leukocytosis: Currently 14.4, afebrile. Patient did receive Deca dron intraoperatively 7. Continue postoperative medical management per medicine: Case discussed with hospitalist. Okay for discharge from medical standpoint 8. Encouraged Incentive Spirometry 9. Disposition: Plan will be for discharge home today as long as patient is medically stable, pain is controlled, and tolerates physical therapy. Prescriptions will be E scribed to [facility] pharmacy. Patient has outpatient physical therapy established. She will follow-up per postop instructions.. I have reviewed the [place] Automated Rx Reporting System (OARRS) report for this patient for refill pattern and other prescriber involvement as part of the appropriate surveillance for the provision of acute and chronic controlled medications. The report was requested and reviewed on the date of this entry and was considered in the prescribing process.
--- NOTE | 2021-02-20 09:04 | DCINST_ITS ---
Discharge Instructions Diet Discharge Diet: No restrictions Activity Discharge Activity: May Not Drive (while taking narcotic pain medications.) May shower in (days): 1 (only if incision is dry and without drainage. Do NOT soak/submerge in tub/pool/mejia/stream/hot tub.)) Ice area for (Minutes): 20 (Every 1-2 hours while [address] barrier between ice and skin.) Weight Bearing Status: Weight bearing as tolerated Keep extremity elevated above heart level: Operative Extremity Dressing / Incision Call your doctor if your incision/area has: Continuous Slow Oozing, Sudden Increased Bleeding, Increased Pain/ Swelling, Increased Redness and Foul Smelling Discharge Call your doctor if you observe: Fever of 101 or Higher, Shortness of breath, Chest pain, Calf discomfort and Uncontrolled pain Remove Dressing in: 4 days (Okay to remove dressing on February 24, 2021) Additional Dressing/Incision Instructions:: Follow [facility] Post-op Instructions. Once postoperative dressing has been removed, only use gentle soap and water over the incision. Do not use any ointments, Neosporin, salves, alcohol pads over the incision for 6 weeks postoperatively. Do not submerge underwater for 6 weeks postoperatively. Continue with NORA hose/elastic stockings for 2 weeks postoperatively. May remove at nighttime but needs to be placed back on the leg during the day. Do NOT use alcohol with narcotic pain medication. Do NOT make important decisions while taking narcotic medication. If you have problems with taking your medication (rash, itching, nausea, etc.) call the office at once. Follow Up Care Test Results: Test results from this visit will be discussed in further detail at your follow-up appointment, if applicable. Discharge Plan Admission Admit Date/Time: 02/19/21 07:07 Attending Provider: Santosh Barbosa Primary Care Provider: Jack Clay Consulting Providers: Isaiah Gonsalves ; Davide Angel Discharge Orders/Prescriptions Prescriptions: New acetaminophen 500 mg Tablet 1,000 mg PO Q8 14 Days Qty: 84 RF: 0 meloxicam 7.5 mg Tablet 7.5 mg PO BID Qty: 60 RF: 0 aspirin 81 mg Tablet,Chewable 81 mg PO BIDCM 30 Days Qty: 60 RF: 0 oxycodone 5 mg Tablet 5 - 10 mg PO Q4H PRN PRN (Reason: Pain Score 4-10) 5 Days Qty: 48 RF: 0 sennosides-docusate sodium [Stool Softener-Stimulant Laxat] 8.6-50 mg Tablet 2 tab PO BID Qty: 14 RF: 0 Continued calcium 600 mg Capsule 1,000 mg PO DAILY RF: 0 omeprazole 40 mg capsule,delayed release(DR/EC) 40 mg PO DAILY RF: 0 montelukast [Singulair] 10 mg Tablet 10 mg PO DAILY RF: 0 losartan-hydrochlorothiazide 50-12.5 mg tablet 1 tab PO DAILY RF: 0 escitalopram oxalate 10 mg tablet 10 mg PO QHS RF: 0 cholecalciferol (vitamin D3) [Vitamin D3] 125 mcg (5,000 unit) Tablet 125 mcg PO DAILY RF: 0 Discontinued aspirin 81 mg Tablet 81 mg PO DAILY RF: 0 Referrals / Follow Up: Jack Clay DO [Primary Care Provider] - Isaiah Gonsalves PA-C [PHYSICIAN [employer] TECHNICIAN] - 03/05/21 9:30 am Physical,Therapy [Other] - 02/24/21 9:00 am Disposition Disposition (needs filled in before D/C Order can be placed): Home, Self Care
[2021-02-20 11:33] VITALS: BP 116/62; PULSE 76; RESP 18; TEMP 36.6; O2SAT 98
--- NOTE | 2021-02-20 15:22 | PCM.PN.HOSP ---
Subjective Subjective Doing well, no issues overnight, pain is controlled Objective Data Objective Data Vital Signs: Vital Signs Temp Pulse Resp BP Pulse Ox 97.8 F 76 18 116/62 98 02/20/21 11:33 02/20/21 11:33 02/20/21 11:33 02/20/21 11:33 02/20/21 11:33 Oxygen Flow Rate (L/min) 6 Oxygen Delivery Method Room Air Weight: 242 lb 8.136 oz Body Mass Index (BMI) 41.6 Intake & Output: Intake and Output for Last 24 Hours 02/19/21 02/20/21 02/21/21 03:59 03:59 03:59 Intake Total 5026 / 5026 400 / 400 Balance 5026 / 5026 400 / 400 Lab / Micro Data Result Diagrams: 02/20/21 05:54 02/20/21 05:54 Labs: Laboratory Results - last 24 hr 02/20/21 02/20/21 05:54 05:54 WBC 14.3 H RBC 4.19 L Hgb 11.7 L Hct 36.6 L MCV 87.4 MCH 27.9 MCHC 32.0 RDW Std Deviation 41.3 RDW Coeff of Amauri 13.1 Plt Count 260 MPV 9.9 Sodium 138 Potassium 3.8 Chloride 104 Carbon Dioxide 29.0 Anion Gap 5 BUN 11 Creatinine 0.76 Estim Creat Clear Calc 64.58 Est GFR (MDRD) Af Amer 98 Est GFR (MDRD) Non-Af 81 BUN/Creatinine Ratio 14.4 Glucose 134 H Calcium 8.4 L Micro: Microbiology 02/18/21 08:45 Interface Orders SARS-CoV-2 Antigen (Rapid) - Final 02/05/21 08:42 Swab (Method) Nasal Screen MRSA/MSSA - Final Physical Exam Const alert, oriented x3 and no apparent distress HEENT normocephalic and moist oral mucous membranes Eyes PERRL, EOMs intact bilaterally and conjunctivae normal Resp normal respiratory effort, normal air movement, no retractions, no use of accessory muscles and clear to auscultation bilaterally Auscultation: Negative for crackles, rales, rhonchi or wheezes Cardio regular rate, regular rhythm, S1 normal heart sound, S2 normal heart sound and no murmurs GI soft to palpation, non-tender and non-distended; Negative for hepatosplenomegaly Extremity normal to inspection Skin no rashes or lesions noted Skin Narrative: Postop dressing intact. Neuro no focal motor deficits and no sensory deficits noted Psych mental status grossly normal and affect normal Assessment & Plan Assessment/Plan (1) Hypertension: PLAN: 1. Left hip osteoarthritis status post left hip replacement- management per ortho. PT/OT. PRN pain regimen. -02/20/2021: No new issues overnight. Clear for discharge from medicine effective 2. Hypertension-stable, continue losartan/HCTZ. -02/20/2021: Creatinine is stable, continue with her home blood pressure medications. 3. Depression-on escitalopram. 4. GERD-continue PPI. 5. SOFI-continue PAP regimen. 6. History of breast cancer DVT prophylaxis- per ortho Charges/Coding Visit Charges OBSV E&M: 09800 Subsequent observation care L2
== END 2021-02-20 15:30 | disposition home or self-care (01) ==
LOC: SDC 08:15 → MS3 08:15
PROVIDERS: Anesthesiology; Physician Assistant Surgical; Admitting Provider Specialist; PCP Family Medicine; Referring Provider Specialist; Visit Provider Specialist
PROC: (CPT 27284; principal; 2021-02-19 08:35)
DX: M16.12 Unilateral primary osteoarthritis, left hip (principal); I10 Essential (primary) hypertension; K21.9 Gastro-esophageal reflux disease without esophagitis; F32.9 Major depressive disorder, single episode, unspecified; G47.33 Obstructive sleep apnea (adult) (pediatric); F41.9 Anxiety disorder, unspecified; Z79.899 Other long term (current) drug therapy; Z79.82 Long term (current) use of aspirin; Z87.891 Personal history of nicotine dependence; Z85.3 Personal history of malignant neoplasm of breast; Z86.14 Personal history of Methicillin resistant Staphylococcus aureus infection
CPT/HCPCS: 01214; 27130; 36415; 73501; 73502; 76000; 80048; 82962; 83735; 85025; 85027; 87081; 87426; 88305; 88311; 93005; 96365; 96366; 96375; 97110; 97162; 97166; 97530; 97535; 99218; 99251; C1776; C9803; J7120; G0378; G0379; G0463

== ENCOUNTER → 2021-04-28 10:37 | Outpatient (CLI) | payer OTHER, SELFPAY ==
[2021-04-28 11:40] LABS: Erythrocyte Sedimentation Rate 15 mm/hr (0-30)
[2021-04-28 11:42] LABS: Absolute Lymphocyte Count 1.66 X10^3/uL (0.83-4.51); Absolute Neutrophil Count 4.9 X10^3/uL (2.0-7.7); Basophil# 0.06 X10^3/uL; Basophil% 0.8 % (0-1); Eosinophil# 0.09 X10^3/uL; Eosinophils% 1.2 % (0-5); Hematocrit 41.5 % (37-47); Hemoglobin 13.3 g/dL (12.0-15.0); Lymphocyte # 1.66 X10^3/ul (0.83-4.51); Lymphocyte % 22.6 % (19-41); Mean Corpuscular Hgb 27.3 pg (27.0-32.0); Mean Platelet Vol. 9.8 fl (6.2-12.0); Monocyte% 8.2 % (0-10); NRBC Flagged by Analyzer 0 % (0-5); Neutrophil # 4.86 X10^3/uL (2.7-7.7); Platelet Count 320 K/mm3 (150-450); RBC Distribution Width CV 13.5 % (11.6-14.6); Red Blood Count 4.88 M/mm3 (4.2-5.4); White Blood Count 7.4 K/mm3 (4.4-11.0)
[2021-04-28 12:06] LABS: CRP 5.35 mg/L (0.0-3.0)
== END ==
PROVIDERS: PCP Family Medicine; Visit Provider Specialist
DX: Z96.642 Presence of left artificial hip joint (principal)
CPT/HCPCS: 36415; 85025; 85652; 86140

== ENCOUNTER → 2021-05-29 11:29 | Outpatient (CLI) | payer OTHER, SELFPAY ==
[2021-05-29 12:35] LABS: Absolute Lymphocyte Count 1.57 X10^3/uL (0.83-4.51); Absolute Neutrophil Count 4.8 X10^3/uL (2.0-7.7); Basophil# 0.05 X10^3/uL; Basophil% 0.7 % (0-1); Eosinophil# 0.14 X10^3/uL; Hematocrit 40.6 % (37-47); Lymphocyte # 1.57 X10^3/ul (0.83-4.51); Lymphocyte % 21.9 % (19-41); Mean Corpuscular Hgb 27.7 pg (27.0-32.0); Mean Corpuscular Volume 86.4 fL (81-99); Mean Platelet Vol. 9.9 fl (6.2-12.0); Monocyte# 0.56 X10^3/uL; Monocyte% 7.8 % (0-10); NRBC Flagged by Analyzer 0 % (0-5); Neutrophil # 4.79 X10^3/uL (2.7-7.7); Neutrophil % 66.9 % (47-70); Platelet Count 254 K/mm3 (150-450); RBC Distribution Width CV 13.4 % (11.6-14.6); RBC Distribution Width SD 41.8 fl (35.1-43.9); White Blood Count 7.2 K/mm3 (4.4-11.0)
[2021-05-29 12:51] LABS: Erythrocyte Sedimentation Rate 18 mm/hr (0-30)
[2021-05-29 13:10] LABS: CRP 5.24 mg/L (0.0-3.0)
== END ==
PROVIDERS: PCP Family Medicine; Visit Provider Specialist
DX: Z96.642 Presence of left artificial hip joint (principal)
CPT/HCPCS: 36415; 85025; 85652; 86140

== ENCOUNTER → 2021-06-17 13:03 | Outpatient (CLI) | payer OTHER, SELFPAY ==
--- NOTE | 2021-06-17 13:15 | CT_ITS ---
CT of the left hip without contrast INDICATION: Abnormal gait. COMPARISON: X-ray 02/19/2021 TECHNIQUE: Multiple thin section axial CT images of the left hip were obtained without the administration of intravenous contrast and filmed in soft tissue and bone windows. Furthermore, multiple sagittal and coronal reconstructions were performed. Dose limiting techniques were utilized. FINDINGS: No abnormal soft tissue mass, lymphadenopathy, fluid collection. No acute fracture or dislocation. No lytic or blastic lesions. Status post left hip arthroplasty. The prosthesis appears located. No ostial lysis to suggest loosening. No large joint effusion. IMPRESSION: Normal CT of the left hip after arthroplasty. Electronically Signed: Adolph Stanton MD at 9:58 EDT Tel , Service support , CT/Extremity Lower without Contra
== END ==
PROVIDERS: PCP Family Medicine; Referring Provider Specialist; Visit Provider Specialist
DX: R26.89 Other abnormalities of gait and mobility (principal); Z96.642 Presence of left artificial hip joint
CPT/HCPCS: 73700

== ENCOUNTER → 2021-07-30 07:57 | Outpatient (CLI) | payer OTHER, SELFPAY ==
--- NOTE | 2021-07-30 07:59 | CT_ITS ---
STUDY: CT LEFT LOWER EXTREMITY WITHOUT CONTRAST REASON FOR EXAM: Left knee osteoarthritis, left knee deformity, surgical planning. TECHNIQUE: Transaxial CT imaging of the lower extremity was performed. Coronal and sagittal images were reformatted. Individualized dose optimization techniques were used for this CT. COMPARISON: CT images of the left hip 06/17/2021. FINDINGS: Knee: There are marginal osteophytes and severe joint space loss of the medial femorotibial compartment (coronal reconstruction 43). There are marginal osteophytes and moderate joint space narrowing of the lateral femorotibial compartment (coronal reconstruction 40). There are marginal osteophytes and severe joint space narrowing of the patellofemoral compartment (axial image 278). Normal proximal tibiofibular articulation. There is a small joint effusion. The quadriceps tendon is grossly normal. The patellar tendon is grossly normal. Normal Hoffa''s fat pad. There is chondrocalcinosis. There is incidental vacuum phenomenon in the medial femorotibial compartment. Hip: There is a left hip arthroplasty without evidence of complication. Ankle: There is tibiotalar arthrosis with small marginal osteophytes and joint space narrowing at the anterior aspect (sagittal reconstructions 15). There is mild posterior subtalar arthrosis with mild joint space narrowing (sagittal reconstructions 17). There are dorsal osteophytes of the talonavicular articulation. There are postoperative changes of the Achilles tendon insertion and ossifications in the distal tendon (sagittal reconstructions 15, 16). CT/Extremity Lower without Contra IMPRESSION: Left knee osteoarthritis. Electronically Signed: Pete Carl MD at 14:59 EST Tel , Service support ,
== END ==
PROVIDERS: PCP Family Medicine; Referring Provider Specialist; Visit Provider Specialist
DX: M21.162 Varus deformity, not elsewhere classified, left knee (principal)
CPT/HCPCS: 73700

== ENCOUNTER → 2021-08-04 09:44 | Outpatient (CLI) | payer OTHER, SELFPAY ==
--- NOTE | 2021-08-04 09:45 | EKG12_ITS ---
Test Reason : PREOP Blood Pressure : / mmHG Vent. Rate : 069 BPM Atrial Rate : 069 BPM P-R Int : 134 ms QRS Dur : 066 ms QT Int : 394 ms P-R-T Axes : 040 017 026 degrees QTc Int : 422 ms Normal sinus rhythm Low voltage QRS Septal infarct , age undetermined Abnormal ECG Confirmed by TIGRE PITTS, RAJESH ([id number]), department editor KRYSTIN AMARO ([id number]) on 08/05/2021 10:03:37 AM Referred By: Isaiah Gonsalves Confirmed By:RAJESH LANDEROS MD
== END ==
PROVIDERS: PCP Family Medicine; Referring Provider Physician Assistant Surgical; Visit Provider Physician Assistant Surgical
DX: Z01.810 Encounter for preprocedural cardiovascular examination (principal); Z01.818 Encounter for other preprocedural examination
CPT/HCPCS: 93005

== ENCOUNTER → 2021-08-06 11:44 | Outpatient (CLI) | payer OTHER, SELFPAY ==
[2021-08-06 16:46] LABS: Probe Check PASS; Specimen Processing Control PASS
== END ==
PROVIDERS: PCP Family Medicine; Referring Provider Specialist; Visit Provider Specialist
DX: Z11.59 Encounter for screening for other viral diseases (principal)
CPT/HCPCS: 87635; C9803; U0005; U0003

== ENCOUNTER → 2021-08-12 15:51 | Outpatient (CLI) | payer OTHER, SELFPAY ==
[2021-08-12 17:21] LABS: Hematocrit 40.9 % (37-47); Hemoglobin 13.6 g/dL (12.0-15.0); Mean Corp Hgb Conc 33.3 g/dL (32-36); Mean Corpuscular Hgb 28.6 pg (27.0-32.0); Mean Corpuscular Volume 85.9 fL (81-99); Mean Platelet Vol. 10.4 fl (6.2-12.0); Platelet Count 316 K/mm3 (150-450); RBC Distribution Width CV 13.9 % (11.6-14.6); RBC Distribution Width SD 43.8 fl (35.1-43.9); Red Blood Count 4.76 M/mm3 (4.2-5.4); White Blood Count 8.8 K/mm3 (4.4-11.0)
[2021-08-12 18:08] LABS: Anion Gap 7 (5-15); BUN 14 mg/dL (7-18); BUN/Creat Ratio 19.1 RATIO (10-20); Calcium,Total 9.6 mg/dL (8.5-10.1); Chloride 106 mmol/L (98-107); Creatinine, Serum 0.73 mg/dL (0.55-1.02); EST Glomerular Filtration Rate 85 mL/min (>60); Est Glom Filt Rate - Afr Amer 103 mL/min (>60); Glucose 98 mg/dL (74-106); Potassium 3.5 mmol/L (3.5-5.1); Sodium Level 136 mmol/L (136-145)
== END ==
PROVIDERS: PCP Family Medicine; Visit Provider Specialist
DX: Z01.812 Encounter for preprocedural laboratory examination (principal)
CPT/HCPCS: 36415; 80048; 82040; 85027